=== PATIENT | female | born 1995 | race African-American/Black ===

== ENCOUNTER 2020-11-01 14:40 | Outpatient (CLI) | payer OTHER, SELFPAY ==
--- NOTE | ~2020-11-01 | US_ITS ---
EXAMINATION: US OB <= 14 weeks fetus DATE: 11/01/2020 15:14 INDICATION: Routine follow-up care TECHNIQUE: Real-time transabdominal obstetric ultrasound. FINDINGS: No prior studies for comparison. The uterus measures 11.9 x 6.8 x 8.5 cm. There is an intrauterine gestational sac, with pole id entified. The crown rump length measures 1.45 cm, which correlates with a estimated gestational age of 7 weeks 6 days. heart tones are identified measuring 180 BPM. There is a corpus luteal cys t of the left ovary measuring 2.6 cm. IMPRESSION: 1. SL IUP with an EGA of 7 weeks, 6 days (EDC by current ultrasound of 06/14/2021). 2: Corpus luteal cyst of the left ovary measuring 2.6 cm. Reviewed, dictated and finalized at location B. IMPRESSION: 1. SL IUP with an EGA of 7 weeks, 6 days (EDC by current ultrasound of ). 2: Corpus luteal cyst of the left ovary measuring 2.6 cm.
== END 2020-11-01 14:41 | disposition home or self-care (01) ==
LOC: ANHIMG 14:47
PROVIDERS: PCP Physician Assistant; Visit Provider Physician Assistant
DX: Z34.91 Encounter for supervision of normal pregnancy, unspecified, first trimester (principal); Z3A.01 Less than 8 weeks gestation of pregnancy; N83.12 Corpus luteum cyst of left ovary
CPT/HCPCS: 76801

== ENCOUNTER 2021-02-03 15:17 | Outpatient (CLI) | payer OTHER, SELFPAY ==
--- NOTE | ~2021-02-03 | US_ITS ---
EXAMINATION: US OB /maternal detail DATE: 02/03/2021 16:18 INDICATION: Encounter for supervision of normal TECHNIQUE: Multiple obstetric sonographic images performed. FINDINGS: Comparison ultrasound dated 11/01/2020 There is a single living fetus in vertex presentation. The placenta is anterior without placenta pre via. Amniotic fluid volume is increased. DIXIE measures 22.4 cm. (Normal range for gestational age is 9 .5-21.4 cm) cardiac activity and movement is noted with a heart rate of 157 beats per minute. The following anatomy was identified as normal: 4 chamber heart 3 vessel cord cord insertion kidneys urinary bladder stomach spine diaphragm ventricles cisterna magna cerebellum The following biometric data were obtained: BPD: 52mm corresponds to gestational age 21 weeks 4 days. Head circumference: 200 mm corresponds to gestational age 22 weeks 1 days. Abdominal circumference: 170 mm corresponds to gestational age 22 weeks 0 days. Femur length: 38 mm corresponds to gestational age 22 weeks 2 days. Head circumference to abdominal circumference ratio: 1.17 (normal range for expected gestational age is 1.06-1.23). Estimated weight: 476 grams +/- 72 grams using Hadlock method. IMPRESSION: 1: Single living intrauterine with an estimated gestational age of 21weeks 2days by initial ultrasound measurements, with an EDC of 06/14/2021 in vertex presentation. 2. Normal survey. 3: Polyhydramnios. DIXIE measures 22.4 cm. Reviewed, dictated and finalized at location A. IMPRESSION: 1: Single living intrauterine with an estimated gestational age of 21 weeks 2days by initial ultrasound measurements, with an EDC of 06/14/2021 in lavelle kike presentation. 2. Normal survey. 3: Polyhydramnios. DIXIE measures 22.4 cm.
== END 2021-02-03 15:18 | disposition home or self-care (01) ==
LOC: ANHIMG 15:22
PROVIDERS: PCP Physician Assistant; Visit Provider Physician Assistant
DX: Z34.92 Encounter for supervision of normal pregnancy, unspecified, second trimester (principal); Z3A.21 21 weeks gestation of pregnancy
CPT/HCPCS: 76805

== ENCOUNTER 2021-03-31 10:46 | Outpatient (CLI) | payer OTHER, SELFPAY ==
--- NOTE | ~2021-03-31 | US_ITS ---
EXAMINATION: US OB follow up DATE: 03/31/2021 11:18 INDICATION: Encounter for supervision of normal third trimester TECHNIQUE: Real-time ultrasound of the pelvis was performed. The interpreting radiologist was not pre sent for the study. COMPARISON: 02/03/2021 FINDINGS: There is a single living fetus in vertex presentation. The placenta is anterior. card iac activity and movement are noted. heart rate is 121 beats per minute (bpm). The amniot ic fluid index is 16.6 cm which is normal. The following biometric data were obtained: Biparietal diameter (BPD): 7.6 cm; head circumference (HC): 27.7 cm; abdominal circumference (AC): 25 .1 cm; femur length (FL): 5.7 cm. These measurements are concordant. Estimated weight is 1444 g +/- 216 g, which correlates with the 53rd percentile when 06/14/2021 is used as estimated date of delivery. As single measurements, these parameters are each equal to the following estimated gestational ages w ith ranges of +/- 2 standard deviations: BPD: 30 weeks 4 days +/- 3 weeks 1 days. HC: 30 weeks 2 days +/- 3 weeks 0 days. AC: 29 weeks 3 days +/- 2 weeks 1 days. FL: 29 weeks 3 days +/- 2 weeks 1 days. estimated gestational age based solely on measurements from this exam is 30 weeks 0 days +/- 2 weeks 1 days. IMPRESSION: 1. Single living fetus in vertex presentation. 2. Estimated weight is 1444 g +/- 216 g, which correlates with the 53rd percentile when 06/14/19 22 is used as estimated date of delivery. 3. Normal amniotic fluid index. Reviewed, dictated and finalized at location B. IMPRESSION: 1. Single living fetus in vertex presentation. 2. Estimated weight is 1444 g +/- 216 g, which correlates with the 53rd p ercentile when 06/14/2021 is used as estimated date of delivery. 3. Normal amniotic fluid index.
== END 2021-03-31 10:47 | disposition home or self-care (01) ==
LOC: ANHIMG 10:51
PROVIDERS: PCP Physician Assistant; Visit Provider Obstetrics & Gynecology
DX: Z34.82 Encounter for supervision of other normal pregnancy, second trimester (principal)
CPT/HCPCS: 76816

== ENCOUNTER 2021-05-18 22:15 | Observation (INO) | payer OTHER, SELFPAY ==
--- NOTE | 2021-05-18 23:43 | LDADM ---
This patient, Andre Simons, was admitted to Labor/Delivery/Recovery 107 on 05/18/21 at 22:15. Plans for labor, pain management and were discussed with patient. Patient/family oriented to hospital policies and general routines including ID bracelet, bed and alarms, visiting hours, pain management, procedures, bathroom and other care routines, personal items, smoking policy, room service/diet and guest tray routines, security routines, and visiting hours. Patient/Family are encouraged to report perceived risks to care and to ask questions if they do not understand what they are told or what they should do. See OBIX for further documentation.
--- NOTE | 2021-06-01 07:47 | PM.OBTRLD ---
OB - Triage/Final Diagnosis Visit Information Comments/Additional reasons for admission: I have assessed the risk for this patient, Andre Simons, and determined that she would benefit from observation care. Final Diagnosis (1) False labor: Code(s): O47.9 - False labor, unspecified Status: Acute
== END 2021-05-18 23:50 | disposition home or self-care (01) ==
PROVIDERS: Admitting Provider Obstetrics & Gynecology; PCP Physician Assistant; Visit Provider Obstetrics & Gynecology
DX: O47.9 False labor, unspecified (principal); Z3A.00 Weeks of gestation of pregnancy not specified
CPT/HCPCS: G0378; G0379

== ENCOUNTER 2021-06-05 15:59 | Outpatient (RCR) | payer OTHER, SELFPAY | END 2021-07-18 09:38 | disposition home or self-care (01) | LOC: ANHOBOP 15:59 | PROVIDERS: PCP Physician Assistant; Visit Provider Obstetrics & Gynecology | DX: O26.899 Other specified pregnancy related conditions, unspecified trimester (principal); Z3A.00 Weeks of gestation of pregnancy not specified | CPT/HCPCS: 99199 ==

== ENCOUNTER 2021-06-07 15:25 | Inpatient (IN) | payer OTHER, SELFPAY ==
[2021-06-07] VITALS (67 sets, daily range): BP systolic 91–130; BP diastolic 46–101; PULSE 73–187; RESP 18; TEMP 36.6–37.6; O2SAT 75–100; BMI 26.3
[2021-06-07 16:28] LABS: Basophils Percent Auto 0.2 % (0.2-1.2); Eosinophils Absolute Auto 0.1 K/mm3 (0-0.3); Eosinophils Percent Auto 0.7 % (0-4.4); Hematocrit 29.1 % (37.0-47.0); Hemoglobin 8.9 g/dL (12.0-15.0); Immature Granulocyte Absolute 0.08 K/mm3 (0.00-0.031); Immature Granulocyte Percent A 0.7 % (0-0.5); Lymphocytes Absolute Auto 1.44 K/mm3 (0.9-3.2); Lymphocytes Percent Auto 12.2 % (18.3-44.2); Mean Corpuscular HGB Conc 30.6 g/dl (32-36); Mean Corpuscular Hemoglobin 24.2 pg (26-34); Mean Corpuscular Volume 79.1 fl (80-100); Mean Platelet Volume 10.6 fl (7.4-10.4); Monocytes Absolute Auto 0.8 K/mm3 (0.1-0.6); Monocytes Percent Auto 6.5 % (2.6-8.5); Neutrophils Absolute Auto 9.5 K/mm3 (1.3-6.7); Neutrophils Percent Auto 79.7 % (45.5-73.1); Platelet Count Result 314 k/mm3 (150-375); Red Blood Count 3.68 M/mm3 (4.2-5.4); Red Cell Distribution Width 15.2 % (11.5-14.5); White Blood Count 11.9 K/mm3 (4.5-10.0)
[2021-06-07] MEDS: CLINDAMYCIN 900 MG/D5W 50 ML 900 MG/50 ML PIGGYBACK 50 MG IVPB (16:30)
[2021-06-07] MEDS: LACTATED RINGERS 1,000 ML 125 ML IV CONT (16:30)
--- NOTE | 2021-06-07 16:42 | LDADM ---
This patient, Andre Simons, was admitted to Labor/Delivery/Recovery 106 on 06/07/21 at 15:25. Plans for labor, pain management and were discussed with patient. Patient/family oriented to hospital policies and general routines including ID bracelet, bed and alarms, visiting hours, pain management, procedures, bathroom and other care routines, personal items, smoking policy, room service/diet and guest tray routines, security routines, and visiting hours. Patient/Family are encouraged to report perceived risks to care and to ask questions if they do not understand what they are told or what they should do. See OBIX for further documentation.
--- NOTE | 2021-06-07 16:53 | P.PNAN_ITS ---
Anes - Eval Pre Procedure Procedure: labor epidural Date/Time: 06/07/21 16:53 Surgeon: brenda Pre Op Diagnosis: labor Patient Data Age: 25 Gender: F Height: 1.68 m Weight: 74 kg Last Vital Signs Pulse 109 H 06/07/21 16:19 BP 117/61 06/07/21 16:19 Allergies Allergy/AdvReac Type Severity Reaction Status Date / Time levofloxacin [From Levaquin] Allergy Hives Verified 05/15/21 12:39 Penicillins Allergy Hives Verified 05/15/21 12:39 Sulfa (Sulfonamide Allergy Hives Verified 05/15/21 12:39 Antibiotics) Home Medications Medication Instructions Recorded Confirmed Type prenat.vits,avril,[id number] 1 tablet PO DAILY 05/15/21 05/15/21 History valacyclovir 500 mg PO DAILY 06/07/21 06/07/21 History Laboratory Tests 06/07/21 06/07/21 06/07/21 16:21 16:21 16:21 WBC 11.9 K/mm3 H K/mm3 (4.5-10.0) RBC 3.68 M/mm3 L M/mm3 (4.2-5.4) Hgb 8.9 g/dL L g/dL (12.0-15.0) Hct 29.1 % L % (37.0-47.0) MCV 79.1 fl L fl (80-100) MCH 24.2 pg L pg (26-34) MCHC 30.6 g/dl L g/dl (32-36) RDW 15.2 % H % (11.5-14.5) Plt Count 314 k/mm3 k/mm3 (150-375) MPV 10.6 fl H fl (7.4-10.4) Immature Gran % (Auto) 0.7 % H % (0-0.5) Neut % (Auto) 79.7 % H % (45.5-73.1) Lymph % (Auto) 12.2 % L % (18.3-44.2) [place] % (Auto) 6.5 % % (2.6-8.5) Eos % (Auto) 0.7 % % (0-4.4) Baso % (Auto) 0.2 % % (0.2-1.2) Lymph # (Auto) 1.44 K/mm3 K/mm3 (0.9-3.2) [place] # (Auto) 0.8 K/mm3 H K/mm3 (0.1-0.6) Eos # (Auto) 0.1 K/mm3 K/mm3 (0-0.3) Baso # (Auto) 0.0 K/mm3 K/mm3 (0.0-0.1) Abs Immat Gran (auto) 0.08 K/mm3 H K/mm3 (0.00-0.031) Absolute Neuts (auto) 9.5 K/mm3 H K/mm3 (1.3-6.7) Absolute Nucleated RBC 0.0 K/mm3 K/mm3 (0.0-0.012) Nucleated RBC % 0.0 % % (0.0-0.2) RPR Pending HIV 1&2 Ab/P24 Ag 4thGn Pending Patient hx anesthesia problems: none Family hx anesthesia problems: none Results Review: All pre-operative results and documents have been reviewed as part of the pre-operative evaluation. [facility], [facility] Family History Family History (Updated 05/15/21 @ 12:41 by Faith Lockwood RN) Grandparent Diabetes mellitus Chronic obstructive pulmonary disease Grandparent Heart disease Social History Social History Smoking status: Never smoker Substance use: never Spiritual care concerns: No Exam Day of Procedure 06/07/21 16:53
[2021-06-07 17:17] LABS: HIV 1/2 Ab P24 Ag Result Negative (Negative)
--- NOTE | 2021-06-07 17:38 | WPDOBADMIT ---
Obstetrics - Admit Note Admission Note: record reviewed. No pertinent additions to the history and/or any subsequent changes in the physical findings that are not consistent with the expected course of the were found. Pt admitted in labor, GBS +, HSV negative per lab, anticipate vaginal delivery Additions to the history and/or subsequent changes in the physical findings follow. None.
--- NOTE | 2021-06-07 18:12 | PM.OBPNLAB ---
Pain Control Date/time seen: 06/07/21 18:12 SVE /-2, AROM moderate amount of clear odorless fluid, anticipate vaginal delivery
--- NOTE | 2021-06-07 21:15 | PM.OBPRVD ---
OB - Delivery Note Procedure Delivery date: 06/07/21 Procedure: vaginal delivery Intrapartal events: None Induction method: none Delivery augmentation: rupture of membranes Delivery monitor: external FHT and external uterine Episiotomy description: None Laceration Description: None Specimen: No Quantitative Blood Loss (ml): 85 Anesthesia type: Epidural Disposition: floor [place] Baby Date of : 06/07/21 Time of : 21:05 Weeks of gestation at delivery: 39 Infant gender: Female Weight (pounds): 6 Weight (ounces): 13 presentation: vertex position: Left Occiput Anterior Placenta delivery description: Spontaneous cord vessel description: 3 Vessels, Nuchal Cord, Tight and Clamped/Cut score one minute: 7 score five minutes: 9 Narrative: tight nuchal cord clamped and cut on perineum, mother and baby skin to skin in stable condition
--- NOTE | 2021-06-07 23:17 | OBPPTRN ---
Patient transferred to post room #292 via W/C. Support person present. Oriented to unit, room, information board, rooming in, admission packet and security measures. Patient verbalizes understanding.
[2021-06-08 04:20] VITALS: BP 115/82; PULSE 85; RESP 18; TEMP 37
[2021-06-08] MEDS: IBUPROFEN 600 MG TABLET PO ×2 (04:39→16:09)
[2021-06-08 05:21] LABS: Hemoglobin 8.4 g/dL (12.0-15.0)
[2021-06-08 06:32] LABS: Rapid Plasma Reagin Non-Reactive (NonReactive)
--- NOTE | 2021-06-08 07:56 | PM.OBPNVD ---
OB - PN: Subj Subjective Date/time seen: 06/08/21 07:56 Patient comments: no complaints baby status: doing well OB - PN: Obj Data Labs CBC & Chem 7: 06/08/21 04:27 Labs: Laboratory Results - last 24 hr 06/07/21 06/07/21 06/07/21 16:21 16:21 16:21 WBC 11.9 H RBC 3.68 L Hgb 8.9 L Hct 29.1 L MCV 79.1 L MCH 24.2 L MCHC 30.6 L RDW 15.2 H Plt Count 314 MPV 10.6 H Immature Gran % (Auto) 0.7 H Neut % (Auto) 79.7 H Lymph % (Auto) 12.2 L [place] % (Auto) 6.5 Eos % (Auto) 0.7 Baso % (Auto) 0.2 Lymph # (Auto) 1.44 [place] # (Auto) 0.8 H Eos # (Auto) 0.1 Baso # (Auto) 0.0 Abs Immat Gran (auto) 0.08 H Absolute Neuts (auto) 9.5 H Absolute Nucleated RBC 0.0 Nucleated RBC % 0.0 RPR Non-reactive HIV 1&2 Ab/P24 Ag 4thGn Negative Blood Type Antibody Screen 06/07/21 06/08/21 16:21 04:27 WBC RBC Hgb 8.4 L Hct 27.0 L MCV MCH MCHC RDW Plt Count MPV Immature Gran % (Auto) Neut % (Auto) Lymph % (Auto) [place] % (Auto) Eos % (Auto) Baso % (Auto) Lymph # (Auto) [place] # (Auto) Eos # (Auto) Baso # (Auto) Abs Immat Gran (auto) Absolute Neuts (auto) Absolute Nucleated RBC Nucleated RBC % RPR HIV 1&2 Ab/P24 Ag 4thGn Blood Type B Positive Antibody Screen Negative OB - PN A/P Plan day: 1 Plan: routine care Time Spent With Patient Time: Total time spent is greater than 50% in coordination of care (as documented) at patient's floor/unit and/or counseling patient: Time with patient: less than 15 minutes Review of Systems Review of Systems: All systems reviewed & are unremarkable except as noted in HPI and below Exam Narrative: Fundus firm and vaginal flow controlled. No lower ext redness, warmth, or edema. Negative homans. Const: General: comfortable Chest: Breast/axilla inspection: normal inspection of the breasts Resp: Effort & Inspection: normal respiratory effort Cardio: Rate: regular rate GI: GI Palp: Yes Soft to palpation Psych: Appearance: grossly normal Affect: normal affect Attitude: cooperative Thought content: Yes Normal thought content present Judgement: Good judgement present (Psych)
[2021-06-08 08:05] VITALS: BP 111/67; PULSE 96; RESP 18; TEMP 37.3; O2SAT 100
[2021-06-08] MEDS: MULTIVIT/MIN/PREN/FOL AC/IRON TABLET 1 TAB PO (09:12)
[2021-06-08] MEDS: POLYSACCHARIDE IRON COMPLEX 150 MG CAPSULE PO ×2 (09:12→16:09)
[2021-06-08] MEDS: DOCUSATE SODIUM 100 MG CAPSULE PO ×2 (09:13→16:09)
[2021-06-08 09:30] VITALS: PULSE 96; RESP 18; O2SAT 100
[2021-06-08 12:18] VITALS: BP 125/70; PULSE 97; RESP 18; TEMP 36.8; O2SAT 100
[2021-06-08 16:10] VITALS: PULSE 97; RESP 18; O2SAT 100
[2021-06-08 19:00] VITALS: BP 105/61; PULSE 99; RESP 16; TEMP 36.7; O2SAT 100
[2021-06-09 07:10] VITALS: BP 106/63; PULSE 87; RESP 16; TEMP 37.1; O2SAT 99
[2021-06-09] MEDS: POLYSACCHARIDE IRON COMPLEX 150 MG CAPSULE PO (07:19)
[2021-06-09] MEDS: MULTIVIT/MIN/PREN/FOL AC/IRON TABLET 1 TAB PO (07:20)
[2021-06-09] MEDS: IBUPROFEN 600 MG TABLET PO (07:20)
[2021-06-09] MEDS: DOCUSATE SODIUM 100 MG CAPSULE PO (07:20)
--- NOTE | 2021-06-09 07:45 | PM.OBPNVD ---
OB - PN: Subj Subjective Date/time seen: 06/09/21 07:45 Patient comments: no complaints baby status: doing well OB - PN: Obj Data Labs CBC & Chem 7: 06/08/21 04:27 OB - PN A/P Plan day: 2 Plan: routine care and discharge home Time Spent With Patient Time: Total time spent is greater than 50% in coordination of care (as documented) at patient's floor/unit and/or counseling patient: Review of Systems Review of Systems: All systems reviewed & are unremarkable except as noted in HPI and below Exam Const: General: cooperative, healthy appearing and comfortable
--- NOTE | 2021-06-09 07:47 | P.DS_ITS ---
DS: Admitting Diagnosis Discharge Date 06/09/21 Admitting Diagnosis labor OB - DS: Summary OB Procedures : None OB Procedures Intrapartum: Spontaneous Vag Delivery OB Procedures: : None Time Spent with Patient Time attestation: Total time spent providing and/or coordinating discharge services: Discharge Plan Discharge Attending physician on discharge: Michelle Nair Discharging Clinician: Rosemary Maciel Patient Disposition: Home, Self-Care Activity: pelvic rest Diet: regular Patient Instructions: Antibiotic Form Stand Alone Forms: General Discharge Information Follow-up/Referrals: Rosemary Maciel, CHARLETTEM [Certified Nurse Inbound Customer Service Agent] - 4 Weeks Discharge Medications: New ibuprofen 600 mg Tablet 600 mg PO Q6H PRN (Reason: Cramping) Qty: 30 RF: 0 Continued prenat.vits,avril,[id number]-flof-rojxh Tablet 1 tablet PO DAILY RF: 0 Discontinued valacyclovir 500 mg tablet 500 mg PO DAILY RF: 0 Date of admission: 06/07/21 15:25 Primary Care Provider: DustinMalia Admitting Provider: Zi Medrano Attending physician on admission: Zi Medrano Condition: Stable
--- NOTE | 2021-06-09 07:48 | P.DS_ITS ---
DS: Admitting Diagnosis Discharge Date 06/09/21 Admitting Diagnosis labor OB - DS: Summary OB Procedures : None OB Procedures Intrapartum: Spontaneous Vag Delivery OB Procedures: : None Time Spent with Patient Time attestation: Total time spent providing and/or coordinating discharge services: Discharge Plan Discharge Attending physician on discharge: Michelle Nair Discharging Clinician: Rosemary Maciel Patient Disposition: Home, Self-Care Activity: pelvic rest Diet: regular Patient Instructions: Antibiotic Form Stand Alone Forms: General Discharge Information Follow-up/Referrals: Rosemary Maciel, CHARLETTEM [Certified Nurse Supervisor [employer]] - 4 Weeks Discharge Medications: New ibuprofen 600 mg Tablet 600 mg PO Q6H PRN (Reason: Cramping) Qty: 30 RF: 0 Continued prenat.vits,avril,sln-irlf-hjasz Tablet 1 tablet PO DAILY RF: 0 Discontinued valacyclovir 500 mg tablet 500 mg PO DAILY RF: 0 Date of admission: 06/07/21 15:25 Primary Care Provider: DustinMalia Admitting Provider: Zi Medrano Attending physician on admission: Zi Medrano Condition: Stable
--- NOTE | 2021-06-09 14:57 | PC.NURSE ---
1100 - Mother verbalizes she is able to independently latch with appropriate positioning/alignment. She denies any nipple discomfort, is feeding as required and waking to feed if needed. is currently meeting outcomes for weight, output, jaundice and feeding frequencies. Mother states she does not require feeding assist/education at this time, then requests a pump and latch review. Infant has a shallow latch at times. Reviewed latch with the assistance of the handout and visual appearance of suck, suck/ swallow ratio and if there is discomfort or not. RN reviewed resources in the Mom/Baby guide. She denies any nipple discomfort, is feeding as required and waking to feed if needed. Infant has had 10 feedings in the past 24 hours, and is currently meeting outcomes for weight, output, jaundice and feeding frequencies. Mother states she feels confident to continue effective at home. Reviewed transition to breast milk, signs of adequate intake, and engorgement/relief. Reviewed hand expression with breast tool and handout. Mom demonstrates understanding. Breast pump provided due to lactating mom's request. Parents have supplemented infant with 40cc of formula. Reviewed improving milk transfer. Instructions given on breast pump care and usage, pumping schedule, nipple care, and collection and storage of breast milk. Encouraged [id number], breast massage and manual expression to stimulate supply. Pumping schedule every 3 hours after due to shallow latching at times. Assessed patient for correct flange size, placement and draw. 1135 - Infant effectively latched to the right breast in football position without discomfort. Patient verbalizes and demonstrates understanding of instructions. Instructed to call ICP if intake/output less than required. Reviewed community resources on the [facility] website, feeding sheet and the Mom/Baby guide. Information on outpatient services provided. Mother has no further questions at this time. Reported to primary RN.
[2021-06-10 08:15] VITALS: BP 111/63; PULSE 102; RESP 18; TEMP 36.7
== END 2021-06-09 12:35 | disposition home or self-care (01) | DRG 560 ==
LOC: ANHLDR 15:56 → ANHOB2 23:46
PROVIDERS: Advanced Practice Midwife; Admitting Provider Obstetrics & Gynecology; PCP Physician Assistant; Visit Provider Obstetrics & Gynecology
DX: O99.824 Streptococcus B carrier state complicating childbirth (principal); O69.1XX0 Labor and delivery complicated by cord around neck, with compression, not applicable or unspecified; O76 Abnormality in fetal heart rate and rhythm complicating labor and delivery; Z3A.39 39 weeks gestation of pregnancy; Z37.0 Single live birth
CPT/HCPCS: 36415; 85014; 85018; 85025; 86592; 86703; 86850; 86900; 86901; A9270; G0432; J2795; J7120

== ENCOUNTER 2021-06-20 13:37 | Outpatient (CLI) | payer OTHER, SELFPAY ==
--- NOTE | ~2021-06-20 | US_ITS ---
EXAMINATION: US venous doppler [facility] EXAM DATE: 06/20/2021 14:41 INDICATION: Bilateral lower leg pain. TECHNIQUE: Multiple grayscale, color flow and Doppler images of the lower extremity deep venous syste ms bilaterally were obtained and reviewed. There is no prior study for comparison. FINDINGS: Right side: The right common femoral, femoral and profunda veins demonstrate normal color flow, respi ratory variation, augmentation and compressibility. Compressibility, color flow confirmed within the right popliteal, posterior tibial, peroneal, and greater saphenous veins. Left side: The left common femoral, femoral and profunda veins demonstrate normal color flow, respira tory variation, augmentation and compressibility. Compressibility, color flow confirmed within the l eft popliteal, posterior tibial, peroneal, and greater saphenous veins. IMPRESSION: 1. No lower extremity deep venous thrombosis bilaterally. Reviewed, dictated and finalized at location A. OSAL MANAGER
== END 2021-06-20 13:38 | disposition home or self-care (01) ==
LOC: ANHIMG 13:41
PROVIDERS: PCP Physician Assistant; Visit Provider Advanced Practice Midwife
DX: M79.606 Pain in leg, unspecified (principal)
CPT/HCPCS: 93970

== ENCOUNTER 2024-12-02 14:56 | Outpatient (CLI) | payer OTHER, SELFPAY ==
--- NOTE | ~2024-12-02 | XR_ITS ---
Cervical Spine: AP, lateral, oblique, open-mouth views Clinical History: Pain Findings: There is reversal of the normal cervical lordosis. The vertebral bodies and posterior lovelock ents appear intact. The intervertebral disc spaces are well maintained. Pre-vertebral soft tissues a re unremarkable. Impression: Reversal of the normal cervical lordosis, otherwise unremarkable exam. Reviewed, dictated and finalized at [facility]. Impression: Reversal of the normal cervical lordosis, otherwise unremarkable exam.
--- NOTE | ~2024-12-02 | XR_ITS ---
EXAM/ PROCEDURE: XR thoracic spine 3V - 12/02/2024 15:18 CDT HISTORY: 29 years old Female with M54.2 - Cervicalgia M54.2 - Cervicalgia COMPARISON: None available TECHNIQUE: Two view(s) FINDINGS/ IMPRESSION: There is rightward scoliosis of the thoracic spine with apex at T10 and Iza angle of 21 degree. There are no fractures or dislocations.Intervertebral disc spaces are within normal limits. Visualize d portion of lungs are clear. Reviewed, dictated and finalized at location A.
--- NOTE | ~2024-12-02 | XR_ITS ---
Lumbosacral Spine: AP, oblique, and lateral views Clinical History: Pain Findings: The normal lordotic curve is maintained. The vertebral bodies and posterior elements are i ntact. The intervertebral disc spaces are preserved. The sacroiliac joints are normally outlined. Impression: No significant abnormality. Reviewed, dictated and finalized at [facility]. Impression: No significant abnormality.
== END 2024-12-02 14:57 | disposition home or self-care (01) ==
LOC: MICIMG 14:58
PROVIDERS: PCP Nurse Practitioner Family; Visit Provider Nurse Practitioner Family
DX: M41.24 Other idiopathic scoliosis, thoracic region (principal); M54.2 Cervicalgia; G89.29 Other chronic pain; M79.2 Neuralgia and neuritis, unspecified
CPT/HCPCS: 72050; 72072; 72110